=== PATIENT | male | born 1955 | race Caucasian/White ===

== ENCOUNTER 2023-02-21 03:31 | Emergency (ER) | payer MEDICARE, OTHER ==
[2023-02-21 04:19] LABS: Base Excess-Venous Greater than 30.0 mmol/L (-2.0 to 3.0); Bicarbonate (HCO3v) 67.5 mmol/L (22.0-28.0); CO2 Tension (PvCO2) 111.7 mmHg (42.0-51.0); Chloride 112 mmol/L (98-107); Potassium 4.8 mmol/L (3.5-5.1); Sodium 163 mmol/L (138-145); vO2 Saturation-calc 93.4 % (60.0-85.0)
[2023-02-21 04:20] LABS: T. Carbon Dioxide Greater than 50.0 mmol/L (22.0-28.0)
[2023-02-21 04:22] LABS: Calcium, Ionized 2.15 mmol/L (1.15-1.33)
[2023-02-21] MEDS ORDERED: Calcium Chloride 1 GM/10 ML Abboject SYRINGE ONE (11:28)
[2023-02-21] MEDS ORDERED: Sodium Bicarb 50 MEQ/50 ML Abboject 8.4% SYRINGE ONE (11:28)
[2023-02-21] MEDS ORDERED: EPINEPHrine 1 MG/10 ML Abboject SYRINGE ONE (11:28)
== END 2023-02-21 03:44 | disposition expired ==
LOC: MADERS 03:31
DX: I46.9 Cardiac arrest, cause unspecified (principal)
CPT/HCPCS: 31500; 82330; 82435; 82803; 84132; 84295; 85014; 92950; J0171